=== PATIENT | female | born 1965 | race Caucasian/White ===

== ENCOUNTER 2018-09-06 05:54 | Day surgery (SDC) | payer OTHER ==
[~2018-09-06 05:54] MED LIST: ALLOPURINOL100 MG PO; AMLODIPINE BESYL5 MG PO; HYDROCHLOROTH12.5 M1 PO; SYNTH PO; ZOCOR20 MG PO
== END 2018-09-06 12:50 | disposition home or self-care (01) ==
LOC: CIR.AMB 05:54
DX: N20.0 Calculus of kidney (principal)

== ENCOUNTER 2021-12-05 10:30 | Outpatient (CLI) | payer OTHER | END 2021-12-05 10:33 | disposition home or self-care (01) | LOC: SONOGRAMA 10:30 | PROVIDERS: ATTEND Pathology Anatomic Pathology & Clinical Pathology | DX: E04.2 Nontoxic multinodular goiter (principal) ==